=== PATIENT | female | born 1990 | race Caucasian/White ===

== ENCOUNTER 2019-10-20 06:11 | Emergency (ER) | payer OTHER ==
[~2019-10-20] VITALS: Ht 162.6 cm; Wt 96.8 kg
--- NOTE | 2019-10-20 06:29 | NUR ---
PT UP TO RR WITH STEADY GAIT, PROVIDED PT WITH URINE CUP FOR SAMPLE
[2019-10-20] MEDS ORDERED: SODIUM CHLORIDE 0.9% 1,000ML IVBOLUS ONE (06:30)
[2019-10-20] MEDS ORDERED: FAMOTIDINE 20 MG/2 ML IV ONE (06:30)
[2019-10-20] MEDS ORDERED: ONDANSETRON 2MG/ML, 2ML IVPush ONE (06:30)
[2019-10-20] MEDS ORDERED: SODIUM CHLORIDE FLUSH 10ML SYR IVF ONE (06:30)
--- NOTE | 2019-10-20 06:36 | NUR ---
URINE SAMPLE SENT
--- NOTE | 2019-10-20 06:45 | NUR ---
IV SITE STARTED. LABS DRAWN, IV FLUIDS INFUSING
[2019-10-20] MEDS ORDERED: ONDANSETRON 2MG/ML, 2ML ONE (06:49)
[2019-10-20] MEDS ORDERED: FAMOTIDINE 20 MG/2 ML ONE (06:49)
--- NOTE | 2019-10-20 06:51 | NUR ---
PT MEDICATED PER MAR
--- NOTE | 2019-10-20 06:52 | NUR ---
REPORT RECEIVED FROM MALINA WILKES. PLAN OF CARE DISCUSSED.
--- NOTE | 2019-10-20 06:53 | NUR ---
REPORT GIVEN TO MALINA BAILEY
[2019-10-20 07:00] LABS: BASOPHILS # (AUTO) 0.04 x10^3/uL (0-0.1); BASOPHILS % (AUTO) 1 % (0-1); EOSINOPHILS # (AUTO) 0.12 x10^3/uL (0-0.4); EOSINOPHILS % (AUTO) 2 % (1-7); LYMPHOCYTES # (AUTO) 2.37 x10^3/uL (1-3.4); LYMPHOCYTES % (AUTO) 29 % (22-44); MD NO; MEAN CORPUSCULAR HEMOGLOBIN 31.2 pg (27.0-34.8); MEAN CORPUSCULAR HGB CONC 33.4 g/dL (32.4-35.8); MEAN CORPUSCULAR VOLUME 93.5 fL (80-100); MONOCYTES # (AUTO) 0.58 x10^3/uL (0.2-0.8); MONOCYTES % (AUTO) 7 % (2-9); NEUTROPHILS # (AUTO) 4.95 x10^3/uL (1.8-6.8); NEUTROPHILS % (AUTO) 61 % (42-75); PLATELET COUNT 239 x10^3/uL (130-400); RED BLOOD COUNT 4.79 x10^6/uL (3.82-5.3); RED CELL DISTRIBUTION WIDTH 12.8 % (9.6-15.2)
[2019-10-20 07:05] LABS: MICROSCOPIC INDICATED
[2019-10-20 07:09] LABS: CULTURE INDICATED? YES
[2019-10-20 07:10] LABS: ALANINE AMINOTRANSFERASE 174 U/L (12-78); ALBUMIN 3.3 g/dL (3.4-5.0); ANION GAP 6 mmol/L (5-15); CALCIUM 9.2 mg/dL (8.5-10.1); CHLORIDE 111 mmol/L (98-107); CREATININE 1.46 mg/dL (0.55-1.02)
--- NOTE | 2019-10-20 07:10 | NUR ---
PATIENT EDUCATED ON NEED FOR STOOL SAMPLE, VERBALIZED SHE WILL CALL WHEN SHE HAS URGE.
[2019-10-20 07:15] LABS: ALKALINE PHOSPHATASE 68 U/L (45-117); BILIRUBIN,TOTAL 0.9 mg/dL (0.2-1.0); TOTAL PROTEIN 6.7 g/dL (6.4-8.2)
--- NOTE | 2019-10-20 07:29 | NUR ---
PATIENT TO XRAY
--- NOTE | 2019-10-20 07:35 | NUR ---
PATIENT BACK FROM XRAY.
[2019-10-20] MEDS ORDERED: LOSA50TA14 PO (07:43)
--- NOTE | 2019-10-20 07:45 | NUR ---
PATIENT VERBALIZED STILL HAS NAUSEA, MD AWARE. MD VERBALIZED NO NEED FOR BLOOD CULTURES BEFORE ABX ADMIN.
[2019-10-20] MEDS ORDERED: PROMETHAZINE 25 MG/ML, 1ML ONE (07:48)
[2019-10-20] MEDS ORDERED: CEFTRIAXONE PMX 1GM/50ML 50 ML ONE (07:48)
--- NOTE | 2019-10-20 07:59 | NUR ---
PATIENT MEDICATED PER EMAR, TOLERATED WELL. PATIENT RESTING ON GURNEY, DENIES NEEDS AT THIS TIME.
[2019-10-20] MEDS ORDERED: PROMETHAZINE 25 MG/ML, 1ML IM ONE (08:00)
[2019-10-20 08:53] VITALS: BP 130/84
[2019-10-20] MEDS ORDERED: CEFTRIAXONE PMX 1GM/50ML 50 ML IV ONE (09:00)
== END 2019-10-20 08:55 | disposition home or self-care (01) ==
LOC: ED 07:26
DX: N30.00 Acute cystitis without hematuria (principal); R19.7 Diarrhea, unspecified; R11.2 Nausea with vomiting, unspecified
CPT/HCPCS: 36415; 74021; 80053; 81001; 83690; 84703; 85025; 87077; 87086; 87186; 96361; 96365; 96372; 96375; 99284; J0696; J2405; J2550; J3490; J7030